=== PATIENT | female | born 1965 | race Caucasian/White ===

== ENCOUNTER 2025-03-28 05:54 | Day surgery (SDC) | payer OTHER, SELFPAY ==
[2025-03-28 06:06] VITALS: BP 149/99; PULSE 126; RESP 18; TEMP 36.4; O2SAT 97; BMI 32.6
--- NOTE | 2025-03-28 07:02 | W.PM.OPSFHP ---
Same Day Surgery H&P Indication for Procedure/HPI DATE OF PROCEDURE: March 28, 2025 CHIEF COMPLAINT/INDICATIONFOR SURGICAL PROCEDURE: screening colonoscopy PREOP DIAGNOSIS: screening colonoscopy PLANNED PROCEDURE: Operation Date: 03/28/25 07:00 Proposed Procedures p Colonoscopy 37101 G0105, Z12.11(Not Applicable) - Fracisco Hopkins MD Medications/Allergies* Home Medications ?Medication ?Instructions ?Recorded ?Confirmed ?Type fluticasone 100 mcg-salmeterol 50 1 inh inhalation BID 03/22/25 03/22/25 History mcg/dose blistr powdr for inhalation Allergies/Adverse Reactions Allergy/AdvReac Type Severity Reaction Status Date / Time amoxicillin Allergy ALGY-Hives Verified 03/22/25 08:41 Sulfa (Sulfonamide Allergy ADR-Vomitin Verified 03/22/25 08:41 Antibiotics) g Current Medications: Generic Name Dose Route Start Last Admin Trade Name Freq PRN Reason Stop Dose Admin Sodium Chloride 1,000 mls @ 15 mls/hr 03/28/25 05:56 03/28/25 06:16 Sodium Chloride 0.9% IV 03/29/25 05:55 15 mls/hr .Q24H PRN Administration COLONOSCOPY FLUIDS Pertinent History/Comorbid Conditions* Medical History (Updated 10/23/24 @ 11:21 by Demetrius Nicholson DO) Menopausal symptoms History of diverticulitis Encounter for screening colonoscopy Diverticulitis Asthma Surgical History (Updated 03/14/24 @ 09:24 by Malia Alfonso NP) History of cholecystectomy History of appendectomy Family History (Updated 03/14/24 @ 09:14 by Carolyne Sanders MA) Atrial fibrillation Father Hypereosinophilic syndrome [hes], unspecified Mother Aortic valve replaced Father Social History Smoking and tobacco/nicotine status: never used tobacco/nicotine Alcohol intake: former Substance/Drug Use: never Adopted: No service: No Current occupational exposures/hazards: Yes 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
--- NOTE | 2025-03-28 07:21 | P.ANESASSM_ITS ---
Pre-Anesthetic Assessment Height/Weight: Height 5 ft 8 in Weight 215 lb Temp Pulse Resp BP Pulse Ox O2 Del Method 97.5 F L 126 H 18 149/99 97 Room Air 03/28/25 06:06 03/28/25 06:06 03/28/25 06:06 03/28/25 06:06 03/28/25 06:06 03/28/25 06:06 Preop Diagnosis: screening colonoscopy Operation Date: 03/28/25 07:00 Proposed Procedures p Colonoscopy 46312 G0105, Z12.11(Not Applicable) - Fracisco Hopkins MD Was Beta Meagan taken within 24 hours: N/A Was Clonidine taken within 24 hours: N/A Last intake: Intake Last Liquid Date 03/27/25 Last Liquid Time 23:00 Last Solid Date 03/26/25 Last Solid Time 17:00 Social No alcohol and No tobacco Exam alert, oriented x 3, clear to auscultation bilaterally and regular rate & rhythm Airway Submandibular: within normal limits Cervical ROM: within normal limits Mallampati: Class II Dentition: full Anesthetic Plan ASA status: 2 Anesthesia: MAC Other: Patient states that she got sick after her gallbladder surgery Completed bowel prep History of asthma, controlled with inhalers Denies any cardiac issues METs greater than 4 Plan for MAC anesthesia Medications/Allergies Home Medications ?Medication ?Instructions ?Recorded ?Confirmed ?Last Taken ?Type hydrocortisone 2.5 % topical cream 1 applic ID QID hem orrhoids 10 03/28/24 03/22/25 03/27/25 21:00 Rx with perineal applicator days #30 grams (Anusol-HC) albuterol sulfate 90 mcg/actuation 1 inh inhalation QI D PRN shortness 10/23/24 03/22/25 03/22/25 Rx aerosol inhaler of breath or wheezing #8.5 g chemo estradiol 0.05 mg-norethindrone 1 patch transdermal .T wice Weekly 11/03/24 03/22/25 03/24/25 18:00 Rx 0.14 mg/24 hr semiwkly transderm #8 ea patch (CombiPatch) fluticasone 100 mcg-salmeterol 50 1 inh inhalation BID 03/22/25 03/22/25 03/22/25 History mcg/dose blistr powdr for inhalation Allergies Allergy/AdvReac Type Severity Reaction Status Date / Time amoxicillin Allergy ALGY-Hives Verified 03/22/25 08:41 Sulfa (Sulfonamide Allergy ADR-Vomitin Verified 03/22/25 08:41 Antibiotics) g Current Medications Generic Name Dose Route Start Last Admin Trade Name Freq PRN Reason Stop Dose Admin Sodium Chloride 1,000 mls @ 15 mls/hr 03/28/25 05:56 03/28/25 06:16 Sodium Chloride 0.9% IV 03/29/25 05:55 15 mls/hr .Q24H PRN Administration COLONOSCOPY FLUIDS PFSH Anesthesia Medical History Menopausal symptoms History of diverticulitis Encounter for screening colonoscopy Diverticulitis Asthma Surgical History History of cholecystectomy History of appendectomy Family History Mother Hypereosinophilic syndrome [hes], unspecified Father Atrial fibrillation Aortic valve replaced Social History Smoking and tobacco/nicotine status: never used tobacco/nicotine Alcohol intake: former Substance/Drug Use: never Adopted: No service: No Current occupational exposures/hazards: Yes 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
[2025-03-28 07:23] VITALS: BP 124/74; PULSE 98; RESP 16; TEMP 36.5; O2SAT 96
[2025-03-28] MEDS: ondansetron 2 mg/ML SDV 2 mL 4 MG IVP ×2 (07:31→07:46)
--- NOTE | 2025-03-28 07:34 | PC.NURSE ---
PT CO NAUSEA POST PROCEDURE, PT EDUCATED TO SLOW BREATHING AND SIT UP PT DENIED SITTING UP. PT TURNED ON SIDE AND GIVEN BIO BAG. IN ROOM CALMING PT. PRN ZOFRAN GIVEN
--- NOTE | 2025-03-28 07:45 | PC.NURSE ---
PT STILL CO NAUSEA W ONE EPISODE EMESIS. SECOND PRN ZOFRAN PULLED TO GIVE AT 15 MIN
--- NOTE | 2025-03-28 07:49 | PC.NURSE ---
PT UP TO BATHROOM TRYING TO PASS GAS
--- NOTE | 2025-03-28 07:52 | PC.NURSE ---
PT SUCCESSFULLY PASS GAS ON TOILET
[2025-03-28 08:18] VITALS: BP 142/95; PULSE 118; RESP 16; O2SAT 96
--- NOTE | 2025-03-28 08:20 | ANE.PACU2 ---
Inpatient post-anesthesia follow up: Airway intact: Yes Vital signs: Temperature 97.7 F Pulse Rate 118 Respiratory Rate 16 Blood Pressure 142/95 Pulse Oximetry 96 Oxygen Delivery Me thod Room Air Oxygen Flow Rate Fraction of Inspir ed Oxygen Hydration adequate: Yes Nausea and vomiting: No Pain level: 1 Mental status: Baseline
== END 2025-03-28 08:20 | disposition home or self-care (01) ==
PROVIDERS: Visit Provider Student in an Organized Health Care Education/Training Program
PROC: 0DJD8ZZ Inspection of Lower Intestinal Tract, Via Natural or Artificial Opening Endoscopic (ICD-10-PCS; CPT 45378; principal; 2025-03-28 07:00)
DX: Z12.11 Encounter for screening for malignant neoplasm of colon (principal); K63.5 Polyp of colon; D12.0 Benign neoplasm of cecum; Z87.19 Personal history of other diseases of the digestive system; K57.30 Diverticulosis of large intestine without perforation or abscess without bleeding; K64.3 Fourth degree hemorrhoids; K64.4 Residual hemorrhoidal skin tags; J45.909 Unspecified asthma, uncomplicated
CPT/HCPCS: 45380; 45385; 88305; J2405; J2704; J7030; J9999